=== PATIENT | female | born 1970 | race Two or more races ===

== ENCOUNTER 2023-03-20 05:25 | Inpatient (IN) | payer MEDICAID ==
[~2023-03-20] VITALS: Ht 162.6 cm; Wt 79.4 kg
[2023-03-20] MEDS ORDERED: ANESTHESIA TRAY IN PYXIS 1 EA TRAY MC ONE (06:15)
[2023-03-20] MEDS ORDERED: POLYMYXIN B SULFATE 500,000 UNITS ONE (06:15)
[2023-03-20] MEDS ORDERED: BUPIVACAINE 0.5 % PF 150 MG/30 ML VIAL ONE (06:15)
[2023-03-20] MEDS ORDERED: METHYLENE BLUE 10 ML VIAL ONE (06:22)
[2023-03-20] MEDS ORDERED: FENTANYL PF 100MCG/2ML AMPUL ONE (06:45)
[2023-03-20] MEDS ORDERED: ROCURONIUM BROMIDE 50 MG/5 ML ONE (06:46)
[2023-03-20] MEDS ORDERED: MIDAZOLAM HCL 2 MG/2ML VIAL ONE (06:46)
[2023-03-20] MEDS ORDERED: HYDROMORPHONE INJ 2 MG/ML DISP.SYRIN ONE (06:46)
[2023-03-20] MEDS ORDERED: ROPIVACAINE HCL 0.5% 5 MG/ML 30ML VIAL ONE (06:55)
[2023-03-20] MEDS ORDERED: TRANEXAMIC ACID 3,000 MG in SODIUM CHLORIDE IRRIG SOLUTION 70 ML IR ONE (07:30)
[2023-03-20 08:14] LABS: PREGNANCY TEST URINE QUAL NEGATIVE (NEGATIVE)
[2023-03-20] MEDS ORDERED: BUPIVACAINE 0.25% 75 MG/30 ML VIAL ONE (08:16)
[2023-03-20] MEDS ORDERED: SENNOSIDES 8.6 MG TABLET PO PRN (09:30)
[2023-03-20] MEDS ORDERED: ONDANSETRON HCL/PF 4 MG/2 ML VIAL IV PRN ×2 (09:30→10:30)
[2023-03-20] MEDS ORDERED: DOCUSATE SODIUM 250 MG CAPSULE PO PRN (09:30)
[2023-03-20] MEDS ORDERED: ACETAMINOPHEN 325 MG TABLET PO PRN (09:30)
[2023-03-20] MEDS ORDERED: ZOLPIDEM TARTRATE 5 MG TABLET PO PRN ×2 (09:30→11:30)
[2023-03-20] MEDS ORDERED: BISACODYL SUPP (10 MG) 10 MG/SUPP.RECT SUPP.RECT RC PRN (09:30)
[2023-03-20] MEDS ORDERED: HYDROCODONE/APAP 5/325MG TABLET PO PRN (09:30)
[2023-03-20] MEDS ORDERED: HYDROMORPHONE 1 MG/1 ML DISP.SYRIN IV ONE (10:02)
[2023-03-20 10:25] VITALS: BP 112/62; TEMP 97.6; O2SAT 97
[2023-03-20] MEDS ORDERED: MAGNESIUM HYDROXIDE 30 ML UDC PO PRN (10:30)
[2023-03-20] MEDS ORDERED: ALBUTEROL FS 2.5 MG/0.5 ML VIAL.NEB NEB PRN (10:30)
[2023-03-20] MEDS ORDERED: CLONIDINE HCL 0.1 MG TABLET PO PRN (10:30)
[2023-03-20] MEDS ORDERED: diphenhydrAMINE HCL 25 MG CAPSULE PO PRN (10:30)
[2023-03-20] MEDS ORDERED: MAG HYDROX/AL HYDROX/SIMETH 30 ML UDC PO PRN (10:30)
[2023-03-20] MEDS ORDERED: MENTHOL/CETYLPYRD (CEPACOL) 1 LOZ LOZENGE PO PRN (10:30)
[2023-03-20] MEDS: HYDROCODONE/APAP 10/325MG TABLET PO PRN ×3 (10:35→23:55)
[2023-03-20] MEDS: ESCITALOPRAM OXALATE (10 MG) 10 MG TABLET PO SCH (10:36)
[2023-03-20] MEDS ORDERED: ESCI10TA PO (10:57)
[2023-03-20] MEDS ORDERED: ALBU18HF2 IH (10:57)
[2023-03-20] MEDS ORDERED: IBUP-1957 PO (10:57)
[2023-03-20] MEDS ORDERED: ACET1TAB23 PO (10:57)
[2023-03-20] MEDS ORDERED: BUPR-54 PO (11:04)
[2023-03-20] MEDS ORDERED: LOSA100T31 PO (11:04)
[2023-03-20] MEDS ORDERED: ALBUTEROL FS 2.5 MG/3 ML VIAL.NEB NEB PRN (11:30)
[2023-03-20] MEDS ORDERED: ONDANSETRON HCL/PF 4 MG/2 ML VIAL IVP PRN (11:30)
[2023-03-20] MEDS ORDERED: ACETAMINOPHEN W/ CODEINE#3 1 EA TABLET PO PRN (11:30)
[2023-03-20] MEDS ORDERED: Z GUARD REMEDY 4 OZ OINT TP PRN (11:30)
[2023-03-20] MEDS: ANCEF 1 GM/50 ML D5W IV SCH ×4 (15:16→23:15)
[2023-03-20] MEDS: IV D5/0.45 NACL 1,000 ML IV PRN (15:16)
[2023-03-20] MEDS: HYDROMORPHONE 1 MG/1 ML DISP.SYRIN IV PRN ×2 (15:37→20:45)
[2023-03-20 16:04] VITALS: BP 107/69; TEMP 97.1; O2SAT 100
[2023-03-20] MEDS: DOCUSATE SODIUM 100 MG CAPSULE PO SCH (17:49)
[2023-03-20 20:00] VITALS: BP 108/65; TEMP 97.9; O2SAT 99
[2023-03-20] MEDS: FAMOTIDINE (20 MG) 20 MG TABLET PO SCH (20:47)
[2023-03-21] MEDS: HYDROMORPHONE 1 MG/1 ML DISP.SYRIN IV PRN ×5 (02:00→20:48)
[2023-03-21] MEDS: IV D5/0.45 NACL 1,000 ML IV PRN (02:12)
[2023-03-21] MEDS: HYDROCODONE/APAP 10/325MG TABLET PO PRN ×2 (06:20→13:23)
[2023-03-21 06:23] LABS: HEMATOCRIT 29 % (33-45); HEMOGLOBIN 9.7 g/dL (11.5-14.8); LYMPHOCYTES # (AUTO) 1.4 K/uL (0.8-4.8); LYMPHOCYTES % (AUTO) 10.8 % (20.0-44.0); MEAN CORPUSCULAR HEMOGLOBIN 32 PG (26.0-33.0); MEAN CORPUSCULAR HGB CONC 33 g/dl (31.0-36.0); MEAN CORPUSCULAR VOLUME 95 fL (82-100); MONOCYTES # (AUTO) 1.2 K/uL (0.1-1.30); MONOCYTES % (AUTO) 9.3 % (2.0-12.0); NEUTROPHILS # (AUTO) 10.6 K/uL (1.8-8.9); NEUTROPHILS % (AUTO) 79.9 % (43.0-81.0); PLATELET COUNT (AUTO) 237 K/uL (150-450); RED BLOOD CELL COUNT(AUTO) 3.07 MIL/uL (4.0-5.2); RED CELL DISTRIBUTION WIDTH 13.5 % (11.5-15.0); WHITE BLOOD COUNT (AUTO) 13.3 K/uL (4.3-11.0)
[2023-03-21 06:38] LABS: CALCIUM, SERUM 8.3 mg/dL (8.5-10.1); CREATININE 0.9 mg/dL (0.6-1.3); MAGNESIUM 2.3 mg/dL (1.8-2.4); POTASSIUM 3.6 mmol/L (3.5-5.1)
[2023-03-21 07:20] LABS: THYROID STIMULATING HORMONE 0.319 uIU/mL (0.358-3.74)
[2023-03-21 08:20] VITALS: BP 100/59; TEMP 97.6; O2SAT 96
[2023-03-21] MEDS: DOCUSATE SODIUM 100 MG CAPSULE PO SCH ×2 (08:36→16:47)
[2023-03-21] MEDS: FAMOTIDINE (20 MG) 20 MG TABLET PO SCH ×2 (08:36→21:49)
[2023-03-21] MEDS: LOSARTAN POTASSIUM 50 MG TABLET PO SCH (08:36)
[2023-03-21] MEDS: ASPIRIN 325 MG TABLET PO SCH (08:36)
[2023-03-21] MEDS: BUPROPION XL 150 MG TAB.ER.24 PO SCH (08:36)
[2023-03-21] MEDS: ESCITALOPRAM OXALATE (10 MG) 10 MG TABLET PO SCH (08:36)
[2023-03-21] MEDS ORDERED: LORAZEPAM 1 MG TABLET PO PRN (17:00)
[2023-03-21] MEDS: IV NS 0.9% 1,000 ML IV PRN (17:30)
[2023-03-21] MEDS ORDERED: IV NS 0.9% 1,000 ML BAG IV PRN (17:30)
[2023-03-21] MEDS: HYDROCODONE/APAP 5/325MG TABLET PO PRN ×2 (17:42→23:28)
[2023-03-21 20:39] VITALS: BP 90/50; TEMP 98.6; O2SAT 100
[2023-03-21 20:48] VITALS: BP 110/60
[2023-03-22] MEDS: HYDROMORPHONE 1 MG/1 ML DISP.SYRIN IV PRN ×6 (04:12→23:16)
[2023-03-22] MEDS: IV NS 0.9% 1,000 ML IV PRN (06:44)
[2023-03-22 08:41] VITALS: BP 109/70; TEMP 97.9; O2SAT 99
[2023-03-22] MEDS: LOSARTAN POTASSIUM 50 MG TABLET PO SCH (09:00)
[2023-03-22] MEDS: ASPIRIN 325 MG TABLET PO SCH (09:20)
[2023-03-22] MEDS: DOCUSATE SODIUM 100 MG CAPSULE PO SCH ×2 (09:21→17:56)
[2023-03-22] MEDS: BUPROPION XL 150 MG TAB.ER.24 PO SCH (09:21)
[2023-03-22] MEDS: FAMOTIDINE (20 MG) 20 MG TABLET PO SCH ×2 (09:21→20:31)
[2023-03-22] MEDS: ESCITALOPRAM OXALATE (10 MG) 10 MG TABLET PO SCH (09:22)
[2023-03-22] MEDS: HYDROCODONE/APAP 5/325MG TABLET PO PRN ×2 (09:22→13:10)
[2023-03-22 16:20] VITALS: BP 93/56; TEMP 97.9; O2SAT 98
[2023-03-22 20:28] VITALS: BP 98/56; TEMP 98.2; O2SAT 99
[2023-03-23] MEDS: HYDROMORPHONE 1 MG/1 ML DISP.SYRIN IV PRN ×5 (03:15→19:59)
[2023-03-23 08:00] VITALS: BP 148/82; TEMP 98.2; O2SAT 98
[2023-03-23] MEDS: FAMOTIDINE (20 MG) 20 MG TABLET PO SCH ×2 (08:55→21:07)
[2023-03-23] MEDS: ESCITALOPRAM OXALATE (10 MG) 10 MG TABLET PO SCH (08:55)
[2023-03-23] MEDS: DOCUSATE SODIUM 100 MG CAPSULE PO SCH ×2 (08:55→16:28)
[2023-03-23] MEDS: BUPROPION XL 150 MG TAB.ER.24 PO SCH (08:56)
[2023-03-23] MEDS: ASPIRIN 325 MG TABLET PO SCH (08:56)
[2023-03-23] MEDS: LOSARTAN POTASSIUM 50 MG TABLET PO SCH (08:57)
[2023-03-23 16:00] VITALS: BP 115/60; TEMP 98.1; O2SAT 94
[2023-03-23 20:00] VITALS: BP 119/72; TEMP 98.2; O2SAT 99
[2023-03-24] MEDS: HYDROMORPHONE 1 MG/1 ML DISP.SYRIN IV PRN ×8 (00:56→22:02)
[2023-03-24 04:00] VITALS: BP 115/67; TEMP 98
[2023-03-24] MEDS: ASPIRIN 325 MG TABLET PO SCH (08:03)
[2023-03-24] MEDS: LOSARTAN POTASSIUM 50 MG TABLET PO SCH (08:03)
[2023-03-24] MEDS: BUPROPION XL 150 MG TAB.ER.24 PO SCH (08:03)
[2023-03-24] MEDS: ESCITALOPRAM OXALATE (10 MG) 10 MG TABLET PO SCH (08:03)
[2023-03-24] MEDS: DOCUSATE SODIUM 100 MG CAPSULE PO SCH ×2 (08:03→16:46)
[2023-03-24] MEDS: FAMOTIDINE (20 MG) 20 MG TABLET PO SCH ×2 (08:03→21:44)
[2023-03-24 08:26] VITALS: BP 120/75; TEMP 98; O2SAT 97
[2023-03-24 16:06] VITALS: BP 118/72; TEMP 98.1; O2SAT 100
[2023-03-24 20:00] VITALS: BP_SYST 109; BP_SYST 118; BP_DIAS 63; BP_DIAS 72; TEMP 98.1; TEMP 99; O2SAT 100; O2SAT 98
[2023-03-25] MEDS: HYDROMORPHONE 1 MG/1 ML DISP.SYRIN IV PRN ×5 (05:51→20:14)
[2023-03-25 07:00] LABS: BASOPHILS % (AUTO) 0.3 % (0.0-2.0); EOSINOPHILS # (AUTO) 0.2 K/uL (0.0-0.7); EOSINOPHILS % (AUTO) 1.7 % (0.0-6.0); HEMATOCRIT 32 % (33-45); HEMOGLOBIN 10.8 g/dL (11.5-14.8); LYMPHOCYTES # (AUTO) 1.7 K/uL (0.8-4.8); LYMPHOCYTES % (AUTO) 17.3 % (20.0-44.0); MEAN CORPUSCULAR HEMOGLOBIN 32 PG (26.0-33.0); MEAN CORPUSCULAR HGB CONC 34 g/dl (31.0-36.0); MEAN CORPUSCULAR VOLUME 94 fL (82-100); MONOCYTES # (AUTO) 0.9 K/uL (0.1-1.30); MONOCYTES % (AUTO) 8.7 % (2.0-12.0); NEUTROPHILS # (AUTO) 7.1 K/uL (1.8-8.9); PLATELET COUNT (AUTO) 273 K/uL (150-450); RED BLOOD CELL COUNT(AUTO) 3.43 MIL/uL (4.0-5.2); RED CELL DISTRIBUTION WIDTH 13.2 % (11.5-15.0); WHITE BLOOD COUNT (AUTO) 9.9 K/uL (4.3-11.0)
[2023-03-25 07:37] LABS: CALCIUM, SERUM 8.8 mg/dL (8.5-10.1); CREATININE 0.7 mg/dL (0.6-1.3); MAGNESIUM 2.2 mg/dL (1.8-2.4); PHOSPHORUS 4.3 mg/dL (2.5-4.9); POTASSIUM 4.3 mmol/L (3.5-5.1)
[2023-03-25 08:00] VITALS: BP 109/74; TEMP 98.2; O2SAT 99
[2023-03-25] MEDS: DOCUSATE SODIUM 100 MG CAPSULE PO SCH ×2 (08:08→16:18)
[2023-03-25] MEDS: ASPIRIN 325 MG TABLET PO SCH (08:12)
[2023-03-25] MEDS: FAMOTIDINE (20 MG) 20 MG TABLET PO SCH ×2 (08:12→20:12)
[2023-03-25] MEDS: ESCITALOPRAM OXALATE (10 MG) 10 MG TABLET PO SCH (08:12)
[2023-03-25] MEDS: BUPROPION XL 150 MG TAB.ER.24 PO SCH (08:12)
[2023-03-25] MEDS: LOSARTAN POTASSIUM 50 MG TABLET PO SCH (08:12)
[2023-03-25] MEDS: HYDROCODONE/APAP 5/325MG TABLET PO PRN (10:06)
[2023-03-25 16:00] VITALS: BP 104/60; TEMP 98.1; O2SAT 100
[2023-03-25 20:00] VITALS: BP 104/54; TEMP 98.1; O2SAT 99
[2023-03-26] MEDS: HYDROMORPHONE 1 MG/1 ML DISP.SYRIN IV PRN ×3 (00:02→08:21)
[2023-03-26 08:00] VITALS: BP 118/64; TEMP 98.4; O2SAT 98
[2023-03-26] MEDS: DOCUSATE SODIUM 100 MG CAPSULE PO SCH (08:30)
[2023-03-26 08:33] VITALS: BP 118/64
[2023-03-26] MEDS: ESCITALOPRAM OXALATE (10 MG) 10 MG TABLET PO SCH (08:33)
[2023-03-26] MEDS: LOSARTAN POTASSIUM 50 MG TABLET PO SCH (08:33)
[2023-03-26] MEDS: BUPROPION XL 150 MG TAB.ER.24 PO SCH (08:33)
[2023-03-26] MEDS: ASPIRIN 325 MG TABLET PO SCH (08:34)
[2023-03-26] MEDS: FAMOTIDINE (20 MG) 20 MG TABLET PO SCH (08:34)
[2023-03-26] MEDS: HYDROCODONE/APAP 5/325MG TABLET PO PRN (11:10)
== END 2023-03-26 12:00 | DRG 326 ==
LOC: DS 05:25 → MED 05:26
PROVIDERS: ADMIT Nurse Practitioner Acute Care; ATTEND Nurse Practitioner Acute Care
PROC: 0SRC0J9 Replacement of Right Knee Joint with Synthetic Substitute, Cemented, Open Approach (ICD-10-PCS; principal; 2023-03-20)
DX: M17.11 Unilateral primary osteoarthritis, right knee (principal); D64.9 Anemia, unspecified; I10 Essential (primary) hypertension; J45.909 Unspecified asthma, uncomplicated; E66.9 Obesity, unspecified; F32.A Depression, unspecified; F41.9 Anxiety disorder, unspecified; Z90.710 Acquired absence of both cervix and uterus; Z68.30 Body mass index [BMI] 30.0-30.9, adult
CPT/HCPCS: 36415; 80048-TC; 80061-TC; 83735-TC; 84100-TC; 84439-TC; 84443-TC; 84703-TC; 85025-TC; 86850-TC; 87081-TC; 97110-TC; 97112-TC; 97116-TC; 97530-TC; A4217; A4223; C1713; C1776; G0378; J0690; J1100; J1170; J1885; J2250; J2405; J2704; J2795; J3010; J3490; J7030; J7060; L1830; Q9968